=== PATIENT | male | born 1955 | race Caucasian/White ===

== ENCOUNTER → 2020-04-20 | Outpatient (CLI) | payer MEDICARE, OTHER ==
[~2020-04-20] MED LIST: ASPIRIN EC81 MG PO; ATORVASTATIN CA20 MG PO; ECOTRIN81 MG PO; ELIQUIS 5 MG TAB5 MG PO; ELIQUIS2.5 MG PO; ELIQUIS5 MG PO; LASIX40 MG PO; LIPITOR TAB 2020 MG PO; LOPRESSOR 25 MG25 MG PO; LOPRESSOR50 MG PO; MELOXICAM15 MG PO; METOPROLOL TART50 MG PO; PANTOPRAZOLE SO40 MG PO; TAPAZOLE 10 MG10 MG PO; TAPAZOLE5 MG PO; ZESTRIL10 MG PO; ZESTRIL40 MG PO
== END ==
LOC: ECHO 12:58
DX: I48.92 Unspecified atrial flutter (principal); I08.3 Combined rheumatic disorders of mitral, aortic and tricuspid valves; R93.1 Abnormal findings on diagnostic imaging of heart and coronary circulation
CPT/HCPCS: ECHO; 93306

== ENCOUNTER → 2020-04-26 | Outpatient (CLI) | payer MEDICARE, OTHER ==
[2020-04-26 12:08] LABS: HEMOGLOBIN 14.7 gm/dl (14.0-17.5); RED BLOOD COUNT 4.9 M/UL (4.20-5.50); WHITE BLOOD COUNT 11.8 K/UL (4.5-11.0)
[2020-04-26 12:27] LABS: BUN/CREATININE RATIO 7 (0-10)
== END ==
LOC: LAB 11:15
PROVIDERS: Internal Medicine Cardiovascular Disease
DX: I48.92 Unspecified atrial flutter (principal); I10 Essential (primary) hypertension; R06.02 Shortness of breath; R91.1 Solitary pulmonary nodule; J84.9 Interstitial pulmonary disease, unspecified
CPT/HCPCS: 36415; 71046; 80048; 85025

== ENCOUNTER 2020-04-28 09:21 | Outpatient (CLI) | payer MEDICARE, OTHER ==
[~2020-04-28] VITALS: Ht 193 cm; Wt 114.8 kg
[~2020-04-28 09:21] MED LIST changes: -ECOTRIN81 MG PO; -ELIQUIS5 MG PO; -LIPITOR TAB 2020 MG PO; -MELOXICAM15 MG PO; -METOPROLOL TART50 MG PO; -TAPAZOLE5 MG PO; -ZESTRIL10 MG PO
[2020-04-28] MEDS ORDERED: LIPITOR TAB 2020 MG PO (10:27)
[2020-04-28] MEDS ORDERED: ECOTRIN81 MG PO (10:27)
[2020-04-28] MEDS ORDERED: ELIQUIS5 MG PO (10:27)
[2020-04-28] MEDS ORDERED: ZESTRIL10 MG PO (10:31)
[2020-04-28] MEDS ORDERED: MELOXICAM15 MG PO (10:32)
[2020-04-28] MEDS ORDERED: METOPROLOL TART50 MG PO (10:33)
[2020-04-28] MEDS ORDERED: TAPAZOLE5 MG PO (10:44)
== END 2020-04-29 10:12 | disposition home or self-care (01) ==
LOC: CATH 09:21 → PROG CARE 14:24 → CATH 04-29 10:12
DX: I48.3 Typical atrial flutter (principal); I11.0 Hypertensive heart disease with heart failure; I50.9 Heart failure, unspecified; I25.2 Old myocardial infarction; E05.90 Thyrotoxicosis, unspecified without thyrotoxic crisis or storm; Z86.73 Personal history of transient ischemic attack (TIA), and cerebral infarction without residual deficits; Z87.891 Personal history of nicotine dependence; Z72.89 Other problems related to lifestyle; Z82.49 Family history of ischemic heart disease and other diseases of the circulatory system; Z79.01 Long term (current) use of anticoagulants; Z79.82 Long term (current) use of aspirin; Z79.899 Other long term (current) drug therapy
CPT/HCPCS: 93005; 93609; 93621; 99152; 99153; C1730; C1733; C1766; J1644; J2250; J3010; J7040

== ENCOUNTER → 2020-10-06 | Outpatient (CLI) | payer MEDICARE ==
[~2020-10-06] MED LIST changes: +ECOTRIN81 MG PO; +ELIQUIS5 MG PO; +LIPITOR TAB 2020 MG PO; +MELOXICAM15 MG PO; +METOPROLOL TART50 MG PO; +TAPAZOLE5 MG PO; +ZESTRIL10 MG PO
== END ==
LOC: KOH-I 10:38
DX: M54.5 Low back pain (principal); M47.816 Spondylosis without myelopathy or radiculopathy, lumbar region
CPT/HCPCS: 72100

== ENCOUNTER → 2020-10-17 | Outpatient (CLI) | payer MEDICARE | LOC: HEART 5 15:10 | DX: I42.9 Cardiomyopathy, unspecified (principal); R60.0 Localized edema; I08.0 Rheumatic disorders of both mitral and aortic valves | CPT/HCPCS: 93306 ==

== ENCOUNTER → 2021-04-16 | Outpatient (CLI) | payer MEDICARE ==
[~2021-04-16] MED LIST changes: +COLACE100 MG PO; +FOLIC ACID 1 MG1 MG PO; +LASIX 40 MG TAB40 MG PO; +ONDANSETRON ODT4 MG PO; +PROTONIX20 MG PO
== END ==
LOC: RAD 07:48
DX: R13.10 Dysphagia, unspecified (principal); I69.320 Aphasia following cerebral infarction; G25.0 Essential tremor; R93.3 Abnormal findings on diagnostic imaging of other parts of digestive tract
CPT/HCPCS: 74230; 92611-GN

== ENCOUNTER 2021-04-19 18:08 | Inpatient (IN) | payer MEDICARE ==
[~2021-04-19] VITALS: Ht 198.1 cm; Wt 103.0 kg
[~2021-04-19 18:08] MED LIST changes: -COLACE100 MG PO; -FOLIC ACID 1 MG1 MG PO; -LASIX 40 MG TAB40 MG PO; +METOPROLOL TART25 MG PO; -METOPROLOL TART50 MG PO; -ONDANSETRON ODT4 MG PO; -PROTONIX20 MG PO; -TAPAZOLE5 MG PO; -ZESTRIL10 MG PO; +ZESTRIL20 MG PO
[2021-04-19 18:31] LABS: HEMOGLOBIN 13.2 gm/dl (14.0-17.5); RED BLOOD COUNT 3.98 M/UL (4.20-5.50)
[2021-04-19] MEDS ORDERED: FOLIC ACID 1 MG1 MG PO (22:40)
[2021-04-19] MEDS ORDERED: PROTONIX20 MG PO (22:41)
[2021-04-19] MEDS ORDERED: COLACE100 MG PO (22:42)
[2021-04-19] MEDS ORDERED: LASIX 40 MG TAB40 MG PO (22:42)
[2021-04-19] MEDS ORDERED: ONDANSETRON ODT4 MG PO (22:44)
[2021-04-20 01:49] LABS: HEMOGLOBIN 12.9 gm/dl (14.0-17.5); RED BLOOD COUNT 3.93 M/UL (4.20-5.50)
[2021-04-20 01:53] LABS: WHITE BLOOD COUNT 41.3 K/UL (4.5-11.0)
[2021-04-21 07:32] LABS: HEMOGLOBIN 11.9 gm/dl (14.0-17.5); RED BLOOD COUNT 3.58 M/UL (4.20-5.50); WHITE BLOOD COUNT 18.1 K/UL (4.5-11.0)
[2021-04-21 07:52] LABS: BUN/CREATININE RATIO 14 (0-10)
[2021-04-22 04:42] LABS: HEMOGLOBIN 11.8 gm/dl (14.0-17.5); RED BLOOD COUNT 3.54 M/UL (4.20-5.50); WHITE BLOOD COUNT 14.4 K/UL (4.5-11.0)
[2021-04-22 05:03] LABS: BUN/CREATININE RATIO 8 (0-10)
[2021-04-23 04:30] LABS: HEMOGLOBIN 11.2 gm/dl (14.0-17.5); RED BLOOD COUNT 3.43 M/UL (4.20-5.50)
[2021-04-23 04:34] LABS: WHITE BLOOD COUNT 10.7 K/UL (4.5-11.0)
[2021-04-23 04:48] LABS: BUN/CREATININE RATIO 5 (0-10)
[2021-04-24 05:28] LABS: BUN/CREATININE RATIO 5 (0-10)
[2021-04-24 05:29] LABS: HEMOGLOBIN 12.6 gm/dl (14.0-17.5); RED BLOOD COUNT 3.81 M/UL (4.20-5.50); WHITE BLOOD COUNT 14.2 K/UL (4.5-11.0)
[2021-04-24] MEDS ORDERED: STIMULANT LAXA1 EACH PO (11:49)
== END 2021-04-24 12:32 | disposition home or self-care (01) | DRG 871 ==
LOC: ER1 18:08 → CDU 21:44 → CCU 21:44
PROVIDERS: Emergency Medicine; Internal Medicine Infectious Disease; ADMIT Internal Medicine
PROC: 3E03329 Introduction of Other Anti-infective into Peripheral Vein, Percutaneous Approach (ICD-10-PCS; principal; 2021-04-20)
PROC: 3E033XZ Introduction of Vasopressor into Peripheral Vein, Percutaneous Approach (ICD-10-PCS; 2021-04-20)
PROC: HZ2ZZZZ Detoxification Services for Substance Abuse Treatment (ICD-10-PCS; 2021-04-20)
PROC: 0DB28ZX Excision of Middle Esophagus, Via Natural or Artificial Opening Endoscopic, Diagnostic (ICD-10-PCS; 2021-04-23)
DX: A41.9 Sepsis, unspecified organism (principal); R65.21 Severe sepsis with septic shock; R57.1 Hypovolemic shock; E87.2 Acidosis; E87.1 Hypo-osmolality and hyponatremia; N17.9 Acute kidney failure, unspecified; E44.0 Moderate protein-calorie malnutrition; C15.9 Malignant neoplasm of esophagus, unspecified; Z20.822 Contact with and (suspected) exposure to COVID-19; F12.10 Cannabis abuse, uncomplicated; I25.10 Atherosclerotic heart disease of native coronary artery without angina pectoris; I48.0 Paroxysmal atrial fibrillation; I11.0 Hypertensive heart disease with heart failure; D64.9 Anemia, unspecified; K80.20 Calculus of gallbladder without cholecystitis without obstruction; R63.4 Abnormal weight loss; E86.0 Dehydration; E78.5 Hyperlipidemia, unspecified; K21.9 Gastro-esophageal reflux disease without esophagitis; K56.41 Fecal impaction; R13.10 Dysphagia, unspecified; E04.9 Nontoxic goiter, unspecified; E87.6 Hypokalemia; F10.10 Alcohol abuse, uncomplicated; R33.9 Retention of urine, unspecified; K62.89 Other specified diseases of anus and rectum; Z86.73 Personal history of transient ischemic attack (TIA), and cerebral infarction without residual deficits; Z95.1 Presence of aortocoronary bypass graft; Z90.49 Acquired absence of other specified parts of digestive tract; Z80.42 Family history of malignant neoplasm of prostate; Z79.01 Long term (current) use of anticoagulants; Z79.899 Other long term (current) drug therapy; Z87.891 Personal history of nicotine dependence; I25.2 Old myocardial infarction; Z80.8 Family history of malignant neoplasm of other organs or systems; Z68.26 Body mass index [BMI] 26.0-26.9, adult
CPT/HCPCS: 36415; 70450; 71045; 71250; 74230; 80048; 80053; 80202; 81001; 82270; 82550; 82553; 83605; 83690; 83735; 83880; 84100; 84439; 84443; 84484; 85025; 85610; 87040; 87070; 87086; 87205; 92610; 92611-GN; 93005; 96374; 96375; 99285; C9113; J1650; J2405; J2543; J2704; J3370; J3411; J3475; J7030; J7040; J7042; J7070; U0002

== ENCOUNTER 2021-04-25 09:20 | Observation (INO) | payer MEDICARE ==
[~2021-04-25] VITALS: Ht 193 cm; Wt 94.8 kg
[~2021-04-25 09:20] MED LIST changes: +COLACE100 MG PO; +FOLIC ACID 1 MG1 MG PO; +LASIX 40 MG TAB40 MG PO; +ONDANSETRON ODT4 MG PO; +PROTONIX20 MG PO; +STIMULANT LAXA1 EACH PO
[2021-04-25 10:03] LABS: HEMOGLOBIN 14.4 gm/dl (14.0-17.5)
[2021-04-25 10:06] LABS: RED BLOOD COUNT 4.48 M/UL (4.20-5.50); WHITE BLOOD COUNT 22.3 K/UL (4.5-11.0)
[2021-04-25 10:20] LABS: BUN/CREATININE RATIO 6 (0-10)
[2021-04-26 06:05] LABS: HEMOGLOBIN 11.4 gm/dl (14.0-17.5); RED BLOOD COUNT 3.53 M/UL (4.20-5.50); WHITE BLOOD COUNT 15.8 K/UL (4.5-11.0)
[2021-04-26 06:19] LABS: BUN/CREATININE RATIO 5 (0-10)
[2021-04-26] MEDS ORDERED: METHIMAZOLE5 MG PO (10:44)
[2021-04-27 04:39] LABS: BUN/CREATININE RATIO 7 (0-10)
[2021-04-27] MEDS ORDERED: FLOMAX 0.4 MG0.4 MG PO (11:35)
== END 2021-04-27 15:53 | disposition home or self-care (01) ==
LOC: ER1 09:20 → CDU 11:10 → MED SURG 4 11:10
PROVIDERS: Emergency Medicine; Physician Assistant Medical; ADMIT Internal Medicine
DX: R33.9 Retention of urine, unspecified (principal); C15.9 Malignant neoplasm of esophagus, unspecified; N17.9 Acute kidney failure, unspecified; D72.829 Elevated white blood cell count, unspecified; E87.1 Hypo-osmolality and hyponatremia; K59.00 Constipation, unspecified; I48.91 Unspecified atrial fibrillation; I11.0 Hypertensive heart disease with heart failure; I50.9 Heart failure, unspecified; I25.2 Old myocardial infarction; I25.10 Atherosclerotic heart disease of native coronary artery without angina pectoris; Z20.822 Contact with and (suspected) exposure to COVID-19; Z86.73 Personal history of transient ischemic attack (TIA), and cerebral infarction without residual deficits; Z87.891 Personal history of nicotine dependence; Z95.5 Presence of coronary angioplasty implant and graft; Z79.82 Long term (current) use of aspirin; Z79.899 Other long term (current) drug therapy
CPT/HCPCS: 36415; 51702; 71045; 80048; 80053; 81001; 83735; 84100; 85025; 85027; 87040; 97116; 97116-GP-CQ; 97161; 97166; 97530; 99285; G0378; U0002

== ENCOUNTER 2021-05-02 21:27 | Inpatient (IN) | payer MEDICARE ==
[~2021-05-02] VITALS: Ht 193 cm; Wt 97.5 kg
[~2021-05-02 21:27] MED LIST changes: +FLOMAX 0.4 MG0.4 MG PO; +METHIMAZOLE5 MG PO
[2021-05-03 05:36] LABS: HEMOGLOBIN 11.1 gm/dl (14.0-17.5); RED BLOOD COUNT 3.48 M/UL (4.20-5.50); WHITE BLOOD COUNT 29.1 K/UL (4.5-11.0)
[2021-05-03 05:57] LABS: BUN/CREATININE RATIO 18 (0-10)
[2021-05-03] MEDS ORDERED: MELOXICAM15 MG PO (10:53)
[2021-05-03] MEDS ORDERED: FLOMAX 0.4 MG0.4 MG PO (10:53)
[2021-05-04 06:15] LABS: HEMOGLOBIN 10.6 gm/dl (14.0-17.5); RED BLOOD COUNT 3.29 M/UL (4.20-5.50)
[2021-05-04 06:19] LABS: WHITE BLOOD COUNT 14.8 K/UL (4.5-11.0)
[2021-05-04 06:44] LABS: BUN/CREATININE RATIO 14 (0-10)
--- NOTE | 2021-05-04 17:20 | NUR ---
[facility] CALLED AT THIS TIME TO GIVE A BED ASSIGNMENT. PROVIDER MADE AWARE. HE STATES HE WILL FIX THE DISCHARGE.
--- NOTE | 2021-05-04 17:46 | NUR ---
ATTEMPTED TO CALL REPORT AT THIS TIME. THEY STATED THAT THEY WERE UNABLE TO TAKE REPORT AT THIS TIME BECAUSE THE RN WAS UNAVAILABLE. I GAVE CALLBACK INFO AND THEY STATED THAT THEY WOULD HAVE HER CALL ME.
--- NOTE | 2021-05-04 18:07 | NUR ---
GAVE REPORT TO SHARON BARAKAT AT [facility] AT THIS TIME.
--- NOTE | 2021-05-04 18:18 | NUR ---
[facility] CONTACTED AT THIS TIME FOR TRANSPORT. [facility] FAXED. THEY STATED THAT THEY WILL SEND A TRUCK.
== END 2021-05-04 17:24 | disposition short-term general hospital (02) | DRG 177 ==
LOC: ER1 21:27 → CDU 05-03 09:37 → MED SURG 4 05-03 10:58
PROVIDERS: Physician Assistant Medical; Student in an Organized Health Care Education/Training Program; ADMIT Internal Medicine Infectious Disease
DX: J69.0 Pneumonitis due to inhalation of food and vomit (principal); J96.01 Acute respiratory failure with hypoxia; C15.9 Malignant neoplasm of esophagus, unspecified; E87.1 Hypo-osmolality and hyponatremia; Z20.822 Contact with and (suspected) exposure to COVID-19; R13.10 Dysphagia, unspecified; E86.0 Dehydration; R33.9 Retention of urine, unspecified; F10.10 Alcohol abuse, uncomplicated; F12.10 Cannabis abuse, uncomplicated; I10 Essential (primary) hypertension; F17.210 Nicotine dependence, cigarettes, uncomplicated; I48.91 Unspecified atrial fibrillation; Z79.01 Long term (current) use of anticoagulants; Z86.73 Personal history of transient ischemic attack (TIA), and cerebral infarction without residual deficits; Z79.82 Long term (current) use of aspirin; Z80.42 Family history of malignant neoplasm of prostate; Z80.8 Family history of malignant neoplasm of other organs or systems; Z68.26 Body mass index [BMI] 26.0-26.9, adult
CPT/HCPCS: 36415; 36600; 71045; 80048; 82550; 82553; 82803; 83605; 83735; 84484; 85025; 85027; 85379; 85652; 86140; 87040; 92610; 94640; 94664; 94760; 96374; 96375; 99285; C9113; J0696; J1650; J2543; Q9967; U0002